=== PATIENT | male | born 1965 | race Caucasian/White ===

== ENCOUNTER → 2019-08-22 07:09 | Outpatient (CLI) | payer OTHER, SELFPAY ==
[2019-08-22 08:07] LABS: Cholesterol 211 mg/dL (140-199); HDL Cholesterol 33 mg/dL (40-60); LDL Cholesterol Calculated 138 mg/dL (<100); Triglycerides 198 mg/dL (35-150)
== END ==
PROVIDERS: PCP Family Medicine; Referring Provider Internal Medicine Cardiovascular Disease; Visit Provider Internal Medicine Cardiovascular Disease
DX: E78.5 Hyperlipidemia, unspecified (principal)
CPT/HCPCS: 36415; 80061

== ENCOUNTER → 2020-10-03 08:43 | Outpatient (CLI) | payer OTHER, SELFPAY ==
--- NOTE | 2020-10-03 | DI.ECHO.S_ITS ---
[facility]---------[facility] +---------+ : : [address] : : : : [id number] : : : : Phone: [phone]+ Echocardiogram Report + + :Name: BENITA RAMOS Study Date: 10/03/2020 Height: 70 in : :[facility] ReadingLocation: Weight: 225 lb : : Gender: Male BSA: 2.2 m2 : :: 1965 Age: 55 yrs BP: 129/85 mmHg: :Reason For Study: ATHEROSCLEROTIC HFEART DISEASE : :Ordering Physician: TSORMY, : :CARMINE Performed By: Ayse Posadas : :Referring: CARMINE HENAO : + + Interpretation Summary 1) Normal left ventricular thickness, size, wall motion, and systolic function (EF 60-65%). 2) Normal right ventricular size and function. 3) No significant valvular abnormalities. 4) No prior Echo available for comparison. Procedure: A two-dimensional transthoracic echocardiogram with color flow and Doppler was performed. The study quality was technically adequate. There is no prior echocardiogram noted for this patient. The patient was in sinus bradycardia with heart rates between 55-60 bpm during the exam. Left Ventricle: The left ventricle is normal in size and wall thickness. The ejection fraction is estimated to be 60-65%. Left ventricular systolic function appears normal without focal wall motion abnormalities. Diastolic parameters suggest probable normal left ventricular diastolic function and normal filling pressures. Right Ventricle: The right ventricle grossly appears normal in size with probable normal systolic function. Atria: The left atrium is mildly dilated. Right atrial size is normal. There is no Doppler evidence for an interatrial shunt. Mitral Valve: The mitral valve is normal in structure and function. There is no mitral regurgitation noted. There is trace mitral regurgitation. Aortic Valve: The aortic valve is trileaflet. The aortic valve opens well. There is no aortic valve stenosis. No aortic regurgitation is present. Tricuspid Valve: The tricuspid valve is normal in structure and function. No tricuspid regurgitation. Pulmonary artery pressures cannot be estimated because of the lack of a measurable TR jet velocity but the IVC suggests a CVP of around 3 mmHg. Pulmonic Valve: The pulmonic valve leaflets are thin and pliable; valve motion is normal. There is no pulmonic valvular regurgitation. Great Vessels: The aortic root is normal size. The ascending aorta is at the upper limits of normal in size. The IVC is of normal diameter and collapses greater than 50% with a sniff. This suggests a low right atrial pressure of 3 mm Hg. Pericardium/ Pleura There is no pericardial effusion. There is no pleural effusion. MMode/2D Measurements & Calculations LVIDd: 4.7 cm LVOT diam: 2.1 cm LVIDs: 2.9 cm Ao root diam: 3.6 cm FS: 38.1 % asc Aorta Diam: 3.7 cm EPSS: 1.2 cm Ao Arch Diam (Prox Trans): 3.4 cm IVSd: 0.93 cm LVPWd: 0.91 cm LV jones. diameter/BSA (cm/m^2): 2.1 LV sys. diameter/BSA (cm/m^2): 1.3 LA A2 area: 26.3 cm2 RA long axis: 5.1 cm LA A4 area: 20.4 cm2 RA area: 17.8 cm2 LA length (vol): 6.0 cm RA vol: 53.0 ml LA vol: 75.4 ml RA : 24.2 ml/m2 LA vol index: 34.4 ml/m2 IVC diam: 1.9 cm RVD1 (basal): 4.5 cm TAPSE: 2.3 cm Doppler Measurements & Calculations Ao V2 max: 149.9 cm/sec LVOT Max Alexandr: 98.2 cm/sec Ao V2 mean: 117.1 cm/sec LV V1 max P.9 mmHg Ao max P.0 mmHg LV V1 VTI: 21.3 cm Ao mean P.9 mmHg DEJAN(I,D): 2.1 cm2 Ao V2 VTI: 34.3 cm DEJAN(V,D): 2.2 cm2 sev ratio: 0.62 DEJAN indexed to BSA (cm^2/m^2): 0.96 MV E max alexandr: 64.7 cm/sec PA V2 max: 74.8 cm/sec MV A max alexandr: 63.0 cm/sec PA V2 mean: 52.7 cm/sec MV E/A: 1.0 PA mean P.2 mmHg Med Peak E' Alexandr: 5.6 cm/sec PA pr(Accel): 25.9 mmHg E/E' med: 11.5 Lat Peak E' Alexandr: 7.5 cm/sec E/E' lat: 8.6 E/e' average: 10.1 MV dec time: 0.25 sec SVLVOT): 72.3 ml Reading Physician:12:02 PM
== END ==
PROVIDERS: Referring Provider Internal Medicine Cardiovascular Disease; Visit Provider Internal Medicine Cardiovascular Disease
DX: I25.10 Atherosclerotic heart disease of native coronary artery without angina pectoris (principal)
CPT/HCPCS: 93306

== ENCOUNTER → 2021-07-07 10:20 | Outpatient (CLI) | payer OTHER, SELFPAY ==
--- NOTE | 2021-07-07 11:08 | DI.CT.S_ITS ---
PROCEDURE: CT ABDOMEN PELVIS WO/W CON INDICATIONS: HISTORY OF GROSS HEMATURIA TECHNIQUE: Optional 5 mm thick noncontrast images acquired from the diaphragm to the symphysis pubis. After the administration of intravenous contrast, 5 mm thick images acquired from the diaphragm to the symphysis pubis after a 10-minute delay. 2 mm thick coronal and sagittal reformats were then performed of the kidneys and ureters. For radiation dose reduction, the following was used: automated exposure control, adjustment of mA and/or kV according to patient size. COMPARISON: None. FINDINGS: Image quality: Excellent. Lung bases: Middle lobe and lingula scars and atelectasis. Heart size is normal. Moderate coronary artery calcification. Urinary system: Both kidneys are normal in size, without hydronephrosis or nephrolithiasis on pre-contrast images. No perinephric fat stranding. There is normal bilateral renal enhancement. Renal calyces appear normal in morphology when filled with contrast. Opacified portions of both ureters demonstrate normal caliber. Bladder wall thickened concentrically. No calcified bladder stones. Prostate is enlarged. Other solid organs: Liver is normal in size and enhancement. Mild hepatic steatosis. Gallbladder is normal. Biliary system is non-dilated. Pancreas enhances normally. Spleen is normal in size and enhancement. No adrenal nodules. Peritoneum and bowel: Bowel loops demonstrate normal wall thickness and caliber. No free fluid or air. Nodes and vessels: No retroperitoneal or mesenteric adenopathy by size criteria. Aorta and inferior vena cava are normal in size. Abdominal wall: No ventral hernias. Pelvis: No pathologic free pelvic fluid. No inguinal adenopathy. Bilateral fat containing inguinal hernias are noted. Bones: No suspicious bony lesions. No vertebral body compression fractures. Degenerative disc and facet disease in lumbar spine causing moderate central canal stenosis at L3-L4, L4-L5 and L5-S1. IMPRESSION: 1. There is mild diffuse wall thickening of urinary bladder. Differential diagnosis include cystitis versus chronic bladder outlet obstruction. Recommend clinical correlation. 2. No renal stone or hydronephrosis. 3. Prostate is enlarged. 4. Degenerative disc and facet disease in lumbar spine causing moderate central canal stenosis. Dictated by: Danette Laguna M.D. on 07/07/2021 at 16:34 Approved by: Danette Laguna M.D. on 07/07/2021 at 17:43
== END ==
PROVIDERS: Referring Provider Urology; Visit Provider Urology
DX: Z87.448 Personal history of other diseases of urinary system (principal); E78.5 Hyperlipidemia, unspecified; N40.0 Benign prostatic hyperplasia without lower urinary tract symptoms; M51.36 Other intervertebral disc degeneration, lumbar region; M48.061 Spinal stenosis, lumbar region without neurogenic claudication
CPT/HCPCS: 36415; 74178; 80061; Q9967

== ENCOUNTER → 2021-07-07 10:21 | Outpatient (CLI) | payer OTHER, SELFPAY ==
[2021-07-07 13:03] LABS: Cholesterol 132 mg/dL (140-199); HDL Cholesterol 34 mg/dL (40-60); LDL Cholesterol Calculated 70 mg/dL (<100); Triglycerides 142 mg/dL (35-150)
== END ==
PROVIDERS: Referring Provider Internal Medicine Cardiovascular Disease; Visit Provider Internal Medicine Cardiovascular Disease
DX: E78.5 Hyperlipidemia, unspecified (principal)
CPT/HCPCS: 36415; 80061

== ENCOUNTER → 2021-11-12 09:51 | Outpatient (CLI) | payer OTHER, SELFPAY ==
--- NOTE | 2021-11-12 | DI.NM.S_ITS ---
PROCEDURE: NM VEE PERF SPECT R&S PHARM Rest and pharmacological stress myocardial perfusion SPECT with gated imaging and ejection fraction RADIOPHARMACEUTICAL: 11.7 mCi Tc-99m tetrafosmin IV at rest and 27.5 mCi Tc-99m tetrafosmin IV at peak effect of pharmacological stress. [id number] was performed. INDICATIONS: Atherosclerotic heart disease TECHNIQUE: Radiopharmaceutical was injected at peak stress test, and also at rest. SPECT images were obtained. SPECT myocardial perfusion images were displayed in short axis, horizontal long axis, and vertical long axis views. Gated images were reviewed using [employer] software. COMPARISON: None. CARDIAC STRESS: Brent protocol 10:34, maximum HR 117 bpm (72% peak predicted) maximum blood pressure 160/90, 10.7 METS, EVANGELISTA -9%. The test was converted to a pharmacologic stress test due to inability to achieve target heart rate (patient took a beta-smita prior to the test). A pharmacologic stress test was then performed under the supervision of an attending staff, using an infusion of regadenoson. Hemodynamic data: There is normal blood pressure and heart rate response to pharmacologic stress. Symptoms: The patient confirmed anginal chest pain 6 minutes into exercise. EK.0 to 2.[address] segment depressions V3 through V6 with exercise; no ectopy. FINDINGS: Raw data: There is good myocardial uptake of radiotracer. No significant motion artifacts. Rxqx-[id number] ratio is 0.49 (normal is less than 0.38 for tetrafosmin tracer). Left ventricle function: Gated images demonstrate normal left ventricular wall thickening. No segmental wall motion abnormalities. No transient ischemic dilation; TID is 1.03 (normal less than 1.3). Left ventricle resting end diastolic volume is 115 mL. Left ventricle stress ejection fraction is 73%; normal range is above 45%. Myocardial perfusion: There is a large size, mild to moderate intensity reversible lateral wall defect. No fixed perfusion defects. IMPRESSION: Abnormal stress test. Due to an inability to achieve target heart rate (patient took a beta-smita prior to exercise) the test was converted to a vasodilator stress test. There is a large size, mild to moderate intensity reversible lateral wall defect consistent with inducible ischemia. The exercise ECG also demonstrates ST segment changes with the exercise portion of the test consistent with inducible ischemia. The patient complained of exercise-induced chest pain. Normal left ventricular function on gated imaging. A message was sent to Dr. Zavala, ordering provider with results. Dictated by: Diana Bridges D.O. on 11/12/2021 at 16:31 Approved by: Diana Bridges D.O. on 11/12/2021 at 16:40
[2021-11-12 11:03] LABS: COVID19 -Nasal RAPID Negative (Negative)
== END ==
PROVIDERS: Referring Provider Internal Medicine Cardiovascular Disease; Visit Provider Internal Medicine Cardiovascular Disease
DX: R94.39 Abnormal result of other cardiovascular function study (principal); I25.10 Atherosclerotic heart disease of native coronary artery without angina pectoris; Z20.822 Contact with and (suspected) exposure to COVID-19
CPT/HCPCS: 78452; 87635; 93017; A9502; J2785

== ENCOUNTER → 2022-12-11 07:14 | Outpatient (CLI) | payer OTHER, SELFPAY ==
[2022-12-11 09:00] LABS: BUN Creatinine Ratio 16.2 (6-22); Blood Urea Nitrogen 16 mg/dL (9-20); Calcium 8.8 mg/dL (8.4-10.2); Carbon Dioxide 28 mmol/L (22-32); Chloride 102 mmol/L (98-107); Cholesterol 122 mg/dL (140-199); Estimated Glomerular Filt Rate > 60 mL/min (>60); Glucose 138 mg/dL (70-100); HDL Cholesterol 28 mg/dL (40-60); HEMOLYSIS < 15 (0-50); LDL Cholesterol Calculated 72 mg/dL (<100); Potassium 4.3 mmol/L (3.4-5.1); Sodium 137 mmol/L (137-145); Triglycerides 111 mg/dL (35-150)
== END ==
PROVIDERS: Referring Provider Internal Medicine Cardiovascular Disease; Visit Provider Internal Medicine Cardiovascular Disease
DX: I25.10 Atherosclerotic heart disease of native coronary artery without angina pectoris (principal)
CPT/HCPCS: 36415; 80048; 80061